=== PATIENT | male | born 1945 | race Caucasian/White ===

== ENCOUNTER 2019-10-09 12:59 | Emergency (ER) | payer OTHER, BC ==
--- NOTE | 2019-10-09 13:17 | PDOC ---
Rapid Medical Evaluation Time Seen by Provider: 10/09/19 13:13 Medical Evaluation: Allergies Allergy/AdvReac Type Severity Reaction Status Date / Time No Known Allergies Allergy Verified 10/09/19 13:12 10/09/19 13:13 Pt with PMH of CAD s/p stenting, IDDM, HTN, presents for fatigue, and lightheadedness for one week. States the lightheadedness gets worse with positional changes Exam: no acute distress, RRR, Breathing comfortably ORA Orders: labs, EKG, orthostatics Pt to proceed to to the ER for further evaluation Discharge Disposition - Diagnosis Lightheaded - Referrals - Patient Instructions - Post Discharge Activity
[2019-10-09 13:19] VITALS: TEMP 98.2; BMI 30.7
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
--- NOTE | 2019-10-09 14:34 | PDOC ---
Attending Attestation - Resident Resident Name: Jin Anderson - ED Attending Attestation I have performed the following: I have examined & evaluated the patient, The case was reviewed & discussed with the resident, I agree w/resident's findings & plan, Exceptions are as noted - HPI HPI: 10/09/19 14:29 74YOM with h/o CAD s/p stenting, IDDM with neuropathy, CKD, and HTN who p/w fatigue, headache, and positional lightheadedness which occurs when he stands from seated position for the past week. He notes the headache has been mild but persistent for the past week, he notes prior similar headaches but never this persistent. Denies any chest pain, f/c/n/v/d/c, new n/t/w focally, photophobia, phonophobia, vertigo, vision problems, or difficulty speaking/swallowing. No LOC or falls or other trauma recently. - Physicial Exam PE: 10/09/19 14:37 GENERAL: elderly but very well appearing, nontoxic-appearing, no distress, answers questions appropriately, accompanied by family at bedside who assist in history HEENT: PERRLA, EOMI, moist mucous membranes NECK/BACK: no midline ttp, no spinal stepoff or deformity, no hematoma, full ROM, neck supple CARDIOVASCULAR: regular rate/rhythm, no MGR, strong peripheral pulses, capillary refill <2 seconds, extremities wwp, no edema LUNGS/RESPIRATORY: no respiratory distress, CTAB GI/ABDOMEN: symmetric [id number], normoactive BS, soft, no ttp, no midline pulsatile masses : no CVA tenderness MSK/EXTREMITIES: no acute-appearing muscle atrophy, no acute deformity DERM/SKIN: warm and dry, no pallor, no jaundice, no rash, no pathologic- appearing bruising, no skin breakdown, no cuts, no lesions NEUROLOGICAL: GCS 15, CN II-XII grossly intact, 5/5 strength proximally and distally, no facial droop, gait normal, no ataxia - Medical Decision Making 10/09/19 14:38 74YOM with h/o CAD, CKD, IDDM who p/w lightheadedness worse with standing, now with EKG change (unclear new v. old). Given the patient's high-risk history he will require admission for pre-syncope and EKG abnormality workup. Initial Vital Signs Temp Pulse Resp BP Pulse Ox 98.2 F 79 18 118/70 100 10/09/19 13:13 10/09/19 13:13 10/09/19 13:13 10/09/19 13:13 10/09/19 13:13 Most likely reflex (neurocardiogenic/vasovagal/situational/carotid sinus hypersensitivity), cardiovascular, structural heart disease, orthostatic hypotension, polypharmacy, autonomic failure, or other causes not true pre syncope d/t subsequent neuro deficit (TIA/CVA, SAH, seizure, metabolic/electrolyte derangement e.g. DM/DKA tend to cause gradual slide into unconsciousness), infection/sepsis/vitals abnormalities, etc. Provider Orders Category Date Time Status ELECTROCARDIOGRAM [CARD] Stat Cardiology 10/09/19 13:15 Completed Cardiac Monitoring Continuous Care 10/09/19 13:44 Completed Cardiac Monitoring Continuous Care 10/09/19 14:53 Completed EKG needed NOW Care 10/09/19 13:16 Completed Vital Signs, Orthostatic NOW Care 10/09/19 13:15 Completed CARDIAC PROFILE ([facility]) Stat Lab 10/09/19 14:00 Completed CBC WITH DIFFERENTIAL Stat Lab 10/09/19 14:00 Completed CMP [COMP METABOLIC PANEL] Stat Lab 10/09/19 14:00 Completed MAGNESIUM Stat Lab 10/09/19 14:00 Completed PT & APTT Stat Lab 10/09/19 16:09 Completed PT/INR (PROTHROMBIN TIME) Stat Lab 10/09/19 14:00 Completed UA ([facility]) ONLY Stat Lab 10/09/19 14:00 Completed Sodium Chloride [Normal Saline -] Medication 10/09/19 14:51 Discontinued 500 ml IV ONCE ONE URINE CULTURE Stat Micro 10/09/19 14:00 Completed IV Insert NOW Phy Order 10/09/19 13:15 Completed CHEST PA & LAT [RAD] Stat Radiology 10/09/19 14:52 Completed Medications Discontinued Medications Generic Name Dose Route Start Last Admin Trade Name Freq PRN Reason Stop Dose Admin Sodium Chloride 500 ml 10/09/19 14:51 10/09/19 15:29 Normal Saline - IV 10/09/19 14:52 500 ml ONCE ONE Administration Microbiology Tests 10/09/19 14:00 Urine Culture - Final Urine - Urine Clean Catch NO GROWTH OBTAINED Lab Results WBC 9.2 K/mm3 (4.0-10.0) 10/09/19 14:00 RBC 4.21 M/mm3 (4.00-5.60) 10/09/19 14:00 Hgb 12.5 GM/dL (11.7-16.9) 10/09/19 14:00 Hct 37.6 % (35.4-49) 10/09/19 14:00 MCV 89.2 fl (80-96) 10/09/19 14:00 MCH 29.8 pg (25.7-33.7) 10/09/19 14:00 MCHC 33.4 g/dl (32.0-35.9) 10/09/19 14:00 RDW 14.6 % (11.9-15.9) 10/09/19 14:00 Plt Count 223 K/MM3 (134-434) 10/09/19 14:00 MPV 8.1 fl (7.5-11.1) 10/09/19 14:00 Absolute Neuts (auto) 5.7 K/mm3 (1.5-8.0) 10/09/19 14:00 Neutrophils % 61.7 % (42.8-82.8) 10/09/19 14:00 Lymphocytes % 24.7 % (8-40) 10/09/19 14:00 Monocytes % 10.2 % (3.8-10.2) 10/09/19 14:00 Eosinophils % 2.6 % (0-4.5) 10/09/19 14:00 Basophils % 0.8 % (0-2.0) 10/09/19 14:00 Nucleated RBC % 0 % (0-0) 10/09/19 14:00 PT with INR 12.30 SEC (9.7-13.0) 10/09/19 16:09 INR 1.04 (0.83-1.09) 10/09/19 16:09 PTT (Actin FS) 28.4 SECONDS (25.2-36.5) 10/09/19 16:09 Sodium 138 mmol/L (136-145) 10/09/19 14:00 Potassium 4.3 mmol/L (3.5-5.1) 10/09/19 14:00 Chloride 108 mmol/L (98-107) H 10/09/19 14:00 Carbon Dioxide 23 mmol/L (21-32) 10/09/19 14:00 Anion Gap 7 MMOL/L (8-16) L 10/09/19 14:00 BUN 28.3 mg/dL (7-18) H 10/09/19 14:00 Creatinine 1.9 mg/dL (0.55-1.3) H 10/09/19 14:00 Est GFR (CKD-EPI)AfAm 39.93 10/09/19 14:00 Est GFR (CKD-EPI)NonAf 34.45 10/09/19 14:00 Random Glucose 76 mg/dL (74-106) 10/09/19 14:00 Calcium 9.1 mg/dL (8.5-10.1) 10/09/19 14:00 Magnesium 2.4 mg/dL (1.8-2.4) 10/09/19 14:00 Total Bilirubin 0.6 mg/dL (0.2-1) 10/09/19 14:00 AST 20 U/L (15-37) 10/09/19 14:00 ALT 20 U/L (13-61) 10/09/19 14:00 Alkaline Phosphatase 54 U/L (45-117) 10/09/19 14:00 Creatine Kinase 125 U/L (26-308) 10/09/19 14:00 Troponin I < 0.02 ng/ml (0.00-0.05) 10/09/19 14:00 Total Protein 7.1 g/dl (6.4-8.2) 10/09/19 14:00 Albumin 3.9 g/dl (3.4-5.0) 10/09/19 14:00 Urine Color Yellow 10/09/19 14:00 Urine Appearance Clear 10/09/19 14:00 Urine pH 5.5 (5.0-8.0) 10/09/19 14:00 Ur Specific [place] 1.005 (1.010-1.035) L 10/09/19 14:00 Urine Protein Negative (NEGATIVE) 10/09/19 14:00 Urine Glucose (UA) Negative (NEGATIVE) 10/09/19 14:00 Urine Ketones Negative (NEGATIVE) 10/09/19 14:00 Urine Blood Negative (NEGATIVE) 10/09/19 14:00 Urine Nitrite Negative (NEGATIVE) 10/09/19 14:00 Urine Bilirubin Negative (NEGATIVE) 10/09/19 14:00 Urine Urobilinogen 0.2 mg/dL (0.2-1.0) 10/09/19 14:00 Ur Leukocyte Esterase 1+ (NEGATIVE) H 10/09/19 14:00 Urine WBC (Auto) 1 /uL (0-25.8) 10/09/19 14:00 Urine RBC (Auto) 0 /uL (0-23.9) 10/09/19 14:00 Urine Casts (Auto) 0 /uL (0-3.1) 10/09/19 14:00 U Epithel Cells (Auto) 1 /uL (0-25.1) 10/09/19 14:00 Urine Bacteria (Auto) 2 /uL (0-1359) 10/09/19 14:00 RAD/CHEST PA LAT CHEST : Presyncopal episode. 2 views of the chest reveal clear well aerated lungs, normal mediastinum and sharp angles. The soft tissues are intact. There are some degenerative changes with wedging. Impression: No acute chest pathology. No comparison studies. Patient has elevated Cr c/w his prior h/o CKD. He has 1+ leuk esterase but not a significant bacterial count in UA, no nitrites, will opt not to treat and follow cultures instead. The patient refuses admission for further workup and observation, after long discussion. He has decision making capacity and family at bedside. AMA per resident note. Heart Score/ECG Review #1 10/09/19 13:35 Sinus rhythm with dropped PQRS every 3rd beat (pattern of atrial bigeminy), ventricular rate of 76, normal axis and intervals, incomplete RBBB, no ischemic ST-T changes (no change from prior EKG obtained from patient's outpatient provider as performed in 10/2018) Discharge - Discharge Information Problems reviewed: Yes Clinical Impression/Diagnosis: Lightheaded, Pre-syncope Condition: Guarded Disposition: AGAINST MEDICAL ADVICE - Follow up/Referral - Patient Discharge Instructions Patient Printed Discharge Instructions: DI for Orthostatic Hypotension, DI for Dehydration -- Adult Additional Instructions: You were seen in the ER for lightheadedness and headache. We did a physical exam, labs, EKG, and chest x-ray, which did not reveal any acute problem. We gave also gave you some fluids. We recommended that you stay in the hospital for observation, but you decided to leave against medical advice. Please follow up with your cosmetics counter manager and primary doctor as soon as possible. We think you were most likely experiencing these symptoms because you did not have enough fluids or as a side effect of your blood pressure medications. However, you may have an underlying cardiac issue that is causing your symptoms. Please return to the ED if you experience continued or worsening symptoms, fever, chills, chest pain, shortness of breath, loss of consciousness, or any other reason. - Post Discharge Activity
[2019-10-09 14:38] LABS: BASO % 0.8 % (0-2.0); EOS % 2.6 % (0-4.5); HEMATOCRIT 37.6 % (35.4-49); HEMOGLOBIN 12.5 GM/dL (11.7-16.9); LYMPH % 24.7 % (8-40); MCH 29.8 pg (25.7-33.7); MCHC 33.4 g/dl (32.0-35.9); MEAN CELL VOLUME 89.2 fl (80-96); MEAN PLT VOLUME 8.1 fl (7.5-11.1); MONO % 10.2 % (3.8-10.2); NEUT % 61.7 % (42.8-82.8); PLATELET COUNT 223 K/MM3 (134-434); RBC 4.21 M/mm3 (4.00-5.60); RDW 14.6 % (11.9-15.9); WHITE BLOOD COUNT 9.2 K/mm3 (4.0-10.0)
[2019-10-09 14:44] VITALS: BP 120/60; PULSE 66
[2019-10-09 14:44] LABS: INR 1.04 (0.83-1.09); PROTHROMBIN TIME (PATIENT) 12.3 SEC (9.7-13.0)
[2019-10-09] MEDS ORDERED: SODIUM CHLORIDE 0.9% 500 ML INFUS.BAG IV ONE (14:51)
[2019-10-09 15:03] LABS: ALBUMIN 3.9 g/dl (3.4-5.0); ALK PHOS 54 U/L (45-117); ANION GAP 7 MMOL/L (8-16); BILIRUBIN,TOTAL 0.6 mg/dL (0.2-1); BLOOD UREA NITROGEN 28.3 mg/dL (7-18); CALCIUM 9.1 mg/dL (8.5-10.1); CHLORIDE 108 mmol/L (98-107); CO2 23 mmol/L (21-32); CREATININE 1.9 mg/dL (0.55-1.3); GLUCOSE,RANDOM 76 mg/dL (74-106); MAGNESIUM 2.4 mg/dL (1.8-2.4); POTASSIUM 4.3 mmol/L (3.5-5.1); SGOT/AST 20 U/L (15-37); SGPT/ALT 20 U/L (13-61); SODIUM 138 mmol/L (136-145); TOT PROT 7.1 g/dl (6.4-8.2)
[2019-10-09 15:25] LABS: EPI CELLS 1 /uL (0-25.1); HYALINE CASTS 0 /uL (0-3.1); PH,URINE 5.5 (5.0-8.0); URINE APPEARANCE CLEAR; URINE BACTERIA 2 /uL (0-1359); URINE BILIRUBIN NEGATIVE (NEGATIVE); URINE COLOR YELLOW; URINE GLUCOSE (UA) NEGATIVE (NEGATIVE); URINE KETONE NEGATIVE (NEGATIVE); URINE LEUK ESTERASE 1+ (NEGATIVE); URINE NITRITE NEGATIVE (NEGATIVE); URINE PROTEIN NEGATIVE (NEGATIVE); URINE RBC 0 /uL (0-23.9); URINE UROBILINOGEN 0.2 mg/dL (0.2-1.0); URINE WBC 1 /uL (0-25.8)
--- NOTE | 2019-10-09 16:07 | EKG ---
Test Reason : Blood Pressure : / mmHG Vent. Rate : 076 BPM Atrial Rate : 076 BPM P-R Int : 170 ms QRS Dur : 098 ms QT Int : 384 ms P-R-T Axes : 061 002 043 degrees QTc Int : 432 ms SINUS RHYTHM WITH PREMATURE ATRIAL COMPLEXES IN A PATTERN OF BIGEMINY OTHERWISE NORMAL ECG NO PREVIOUS ECGS AVAILABLE Confirmed by JAZMIN CHEN MD ([id number]) on 10/09/2019 4:07:07 PM Referred By: Confirmed By:JAZMIN CHEN MD
[2019-10-09 16:49] LABS: INR 1.04 (0.83-1.09); PROTHROMBIN TIME (PATIENT) 12.3 SEC (9.7-13.0)
[2019-10-09 16:52] LABS: ACTIVATED PTT 28.4 SECONDS (25.2-36.5)
== END 2019-10-09 17:02 | disposition left against medical advice (07) ==
LOC: JER 12:59
DX: R55 Syncope and collapse (principal); R42 Dizziness and giddiness
CPT/HCPCS: 36415; 71046-TC-FY; 80053; 81003; 82550; 83735; 84484; 85025; 85610; 85730; 87086; 93005; 93010; 99285-25

== ENCOUNTER 2019-10-30 11:19 | Emergency (ER) | payer OTHER, BC ==
[2019-10-30 11:27] VITALS: TEMP 98.2; BMI 30.4
[2019-10-30] MEDS ORDERED: SODIUM CHLORIDE 0.9% 500 ML INFUS.BAG IV ONE (11:27)
--- NOTE | 2019-10-30 11:27 | PDOC ---
Rapid Medical Evaluation Time Seen by Provider: 10/30/19 11:23 Medical Evaluation: Allergies Allergy/AdvReac Type Severity Reaction Status Date / Time No Known Allergies Allergy Verified 10/09/19 13:12 10/30/19 11:23 I performed a brief in-person evaluation of this patient. Pt is a 74 y/o male who presents to the ED with a persistent headache that he has had for the last 1 month. He states he was seen in the ED a few weeks ago with the same and was given IV fluids which helped. He states he had an MRI outpatient. Missed f/u neurology appointment. He denies any fevers or chills. He has taken Motrin which does help. Pertinent physical exam findings: speaking in full sentences, A&Ox3, walking wit hout ataxia, no facial droop appreciated. I have ordered the following: saline lock, labs, fluids Patient to proceed to ED for further evaluation. Discharge Disposition - Diagnosis Headache - Referrals - Patient Instructions - Post Discharge Activity
[2019-10-30 12:58] LABS: EOS % 5.4 % (0-4.5); HEMATOCRIT 40.1 % (35.4-49); HEMOGLOBIN 13.2 GM/dL (11.7-16.9); LYMPH % 27.9 % (8-40); MCH 29.7 pg (25.7-33.7); MCHC 32.9 g/dl (32.0-35.9); MEAN CELL VOLUME 90.1 fl (80-96); MONO % 9.1 % (3.8-10.2); NEUT % 56.6 % (42.8-82.8); PLATELET COUNT 222 K/MM3 (134-434); RBC 4.45 M/mm3 (4.00-5.60); RDW 14.9 % (11.9-15.9); WHITE BLOOD COUNT 6.7 K/mm3 (4.0-10.0)
[2019-10-30 13:01] LABS: PH,URINE 5.5 (5.0-8.0); URINE APPEARANCE CLEAR; URINE BILIRUBIN NEGATIVE (NEGATIVE); URINE COLOR YELLOW; URINE GLUCOSE (UA) NEGATIVE (NEGATIVE); URINE KETONE NEGATIVE (NEGATIVE); URINE LEUK ESTERASE NEGATIVE (NEGATIVE); URINE NITRITE NEGATIVE (NEGATIVE); URINE PROTEIN NEGATIVE (NEGATIVE); URINE UROBILINOGEN 0.2 mg/dL (0.2-1.0)
[2019-10-30 13:31] LABS: ALBUMIN 4.6 g/dl (3.4-5.0); ALK PHOS 57 U/L (45-117); ANION GAP 3 MMOL/L (8-16); BILIRUBIN,TOTAL 1.2 mg/dL (0.2-1); BLOOD UREA NITROGEN 22.3 mg/dL (7-18); CHLORIDE 110 mmol/L (98-107); CO2 27 mmol/L (21-32); CREATININE 1.8 mg/dL (0.55-1.3); POTASSIUM 4.5 mmol/L (3.5-5.1); SGOT/AST 30 U/L (15-37); SGPT/ALT 34 U/L (13-61); SODIUM 140 mmol/L (136-145); TOT PROT 9.3 g/dl (6.4-8.2)
[2019-10-30] MEDS ORDERED: ACETAMINOPHEN 1000 MG/100 ML VIAL (NON FORMULARY) IVPB ONE (13:53)
[2019-10-30] MEDS ORDERED: LACTATED RINGERS SOLUTION 1000 ML INFUS.BAG IV ONE (13:53)
[2019-10-30] MEDS ORDERED: ACETAMINOPHEN INJECTION 0 ML IVPB ONE (13:55)
[2019-10-30 13:56] LABS: GLUCOSE,RANDOM 60 mg/dL (74-106)
[2019-10-30] MEDS ORDERED: ACETAMINOPHEN INJECTION 100 ML IVPB ONE (13:57)
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
[2019-10-30 14:46] VITALS: BP 146/65; PULSE 54
[2019-10-30] MEDS ORDERED: LIDOCAINE 5% TOPICAL PATCH TP ONE (15:47)
[2019-10-30] MEDS ORDERED: IBUPROFEN 400 MG TABLET (FP) PO ONE ×2 (15:48→16:09)
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
[2019-10-30] MEDS ORDERED: LIDOCAINE 5% TOPICAL PATCH ONE (16:10)
[2019-10-30] MEDS ORDERED: LIDOCAINE PATCH REMOVAL MC SCH (22:00)
== END 2019-10-30 17:00 | disposition home or self-care (01) ==
LOC: JER 11:19
PROC: 3E0333Z Introduction of Anti-inflammatory into Peripheral Vein, Percutaneous Approach (ICD-10-PCS; principal; 2019-10-30)
DX: G44.89 Other headache syndrome (principal)
CPT/HCPCS: 36415; 70450-TC; 80053; 81003; 85025; 86140; 86900; 99284-25; J0131; U0003